=== PATIENT | female | born 1950 | race Caucasian/White ===

== ENCOUNTER 2020-09-26 17:47 | Inpatient (IN) | payer MEDICARE, SELFPAY ==
--- NOTE | ~2020-09-26 | CT_ITS ---
EXAMINATION: CT abdomen pelvis w con DATE: 10/01/2020 08:18 INDICATION: Diverticulitis TECHNIQUE: Computed tomography (CT) of the abdomen and pelvis was performed with 100 mL Omnipaque-350 intravenous contrast. Automated exposure control and iterative reconstruction technique were employe d. The dose-length product was 855.31 mGy-cm. COMPARISON: Outside institution CT studies dated 09/19/2020 and 08/23/2020 FINDINGS: Mild discoid atelectasis at the lingula and right lower lobe. Heart size is normal. No pericardial or pleural effusion. Small sliding-type hiatal hernia. Focal hepatic steatosis at the ligamentum teres. Tiny hepatic calcific location a couple tiny calcifications in the spleen consistent with old granul omatous disease. Gallbladder is not visualized and likely surgically absent. Pancreas, bilateral adre nal glands and left kidney are normal. 1.4 cm right renal cyst. There is extensive colonic diverticul osis without adjacent inflammatory change to suggest diverticulitis. No interval change in a thin rim of soft tissue density surrounding a 1.3 cm macroscopic fat attenuation lesion along the left side o f the sigmoid colon which is without surrounding inflammatory stranding, likely sequela of chronic ep iploic appendagitis. Small bowel and appendix are normal. Small uterine fibroids. Decompressed bladde r and bilateral adnexa are unremarkable. No free intraperitoneal gas or fluid. No pathologically enla rged abdominal or pelvic lymphadenopathy. IMPRESSION: 1. No acute intra-abdominal/pelvic process. 2. Extensive diverticulosis. 3. Fibroid uterus. 4. Small sliding-type hiatal hernia. Reviewed, dictated and finalized at location A.
[2020-09-26 19:05] VITALS: BP 122/62; PULSE 86; RESP 18; TEMP 36.8; O2SAT 97
--- NOTE | 2020-09-26 19:52 | PC.NURSE ---
1815 Erp busy and er staff aware of new swing bed arrival.
[2020-09-26 20:17] VITALS: BMI 34.8
--- NOTE | 2020-09-26 22:27 | ADMGEN ---
This patient, NISHANT MACARIO, was admitted to 2nd Floor Room 226-1. Patient/family oriented to hospital policies and general routines including ID bracelet, bed and alarms, visiting hours, pain management, procedures, bathroom and other care routines, personal items, smoking policy, room service/diet, and visiting hours. Information on how to activate the Rapid Response Team has been discussed. Patient/Family are encouraged to report perceived risks to care and to ask questions if they do not understand what they are told or what they should do. Patient arrived to floor via wheelchair in the care of daughter, son-in-law, and spouse. Transferred patient to bed using a walker and gait belt.
[2020-09-27] VITALS: BP 114/67; PULSE 94; RESP 20; TEMP 36; O2SAT 96
[2020-09-27 05:35] LABS: Alanine Aminotransferase 12 U/L (14-59); Albumin Level 2.3 g/dL (3.4-5.0); Alkaline Phosphatase 88 U/L (46-116); Anion Gap 10 mmol/L (8-16); Aspartate Amino Transferase 15 U/L (15-37); Bilirubin,Total 0.2 mg/dL (0.00-1.00); Blood Urea Nitrogen 8 mg/dL (7-18); Calcium 8.5 mg/dL (8.5-10.1); Carbon Dioxide 27 mmol/L (21-32); Chloride 109 mmol/L (98-108); Estimated Glomerular Filt Rate > 60; Glucose 91 mg/dL (70-99); Osmolality Calculated 300 mOsm/kg (285-295); Potassium 3.8 mmol/L (3.5-5.1); Sodium 146 mmol/L (136-145)
--- NOTE | 2020-09-27 07:31 | WPDREHABHP2 ---
HPI Date/Time 09/27/20 07:31 <RERE Okeefe - Last Filed: 09/27/20 10:01> Narrative This is a 70-year-old female that presented to outside [facility] on 09/18/2020 from her primary care office Dr. Larios after complaints of abdominal pain. She was admitted for reoccurring diverticulitis she had two episodes over the last 2 months was admitted two times for IV antibiotic therapy and DC'd on oral antibiotics with only partial improvement. She was DC'd with Cipro and Flagyl. She continued to have abdominal pain, intermittent diarrhea with worsening weakness and difficulty with ambulating. [facility] patient was placed ertapenem improvement she has agreed to discharge to her swing bed for 14 days of IV antibiotic therapy. P. Patient admitted in swing bed for rehabilitation due to decreased balance decreased mobility in severe limited function endurant and/or mobility. The etiologic diagnosis is [ diverticulitis, generalized weakness] I saw this patient [id number] on [yes] Therapy was initiated at the acute care facility and the patient transferred to us from [[facility]] on [09/26/2020] Our therapists will evaluate the patient and establish the goals. However, upon pre-admission screening, the expected goals were to be [INDEPENDENT] with self-care, [INDEPENDENT] with transfers, and [INDEPENDENT] with functional mobility so that the patient can return home. ESTIMATED LENGTH OF STAY: [10-14 days] POTENTIAL BARRIERS TO DISCHARGE: [Patient lives alone.] [Family needs training.] [Severity of condition.] [Architectural barriers.] ACTIVE CO-MORBIDITIES PRESENT ON ADMISSION: Active co-morbidities include [patient has a past medical history of arthritis, asthma, back pain, GERD, migraine, urinary incontinence and diverticulitis]. The above co-morbidities impact the patient's function and/or functional outcome by [] <RERE Okeefe - Last Filed: 09/27/20 10:01> Covid The patient had a negative COVID test on []. <RERE Okeefe - Last Filed: 09/27/20 10:01> Review of Systems Review of Systems A 14 organ system Review of Systems was performed and pertinent positives included in the HPI, otherwise remaining ROS is negative. <RERE Okeefe - Last Filed: 09/27/20 10:01> [facility] Past Medical History Medical History: Medical History (Updated 09/27/20 @ 09:05 by RERE Okeefe) Arthritis Asthma Diverticulitis FH: cholecystectomy GERD (gastroesophageal reflux disease) Lower back pain Migraine Urinary incontinence <RERE Okeefe - Last Filed: 09/27/20 10:01> Surgical History Surgical History: Surgical History (Updated 09/27/20 @ 07:43 by RERE Okeefe) H/O arthroscopic knee surgery 03/01/2019 x3 H/O breast biopsy H/O colonoscopy History of bladder surgery History of bladder suspension procedure History of lumpectomy of right breast <RERE Okeefe - Last Filed: 09/27/20 10:01> Family History Family History: Family History (Updated 09/27/20 @ 08:33 by RERE Okeefe) Mother Cerebrovascular accident Father Heart disease Diabetes mellitus Malignant neoplasm of prostate Hypertension BL 01/16/2015 <RERE Okeefe - Last Filed: 09/27/20 10:01> Social History Social History: Social History Smoking status: Never smoker Alcohol intake: never Substance use: never Gender identity (if verbalized by the patient): Female Sexual Orientation (if Verbalized by the Patient): Straight or Heterosexual Spiritual care concerns: No <RERE Okeefe - Last Filed: 09/27/20 10:01> Meds Home Medications and Allergies Home medications: Home Medications Medication Instructions Recorded Confirmed Type albuterol sulfate 2 puff INHALATION QID PRN 09/26/20 09/26/20 History ertapenem 1 g IV Q24H 09/26/20 09/26/20 History fluticasone
[2020-09-27 08:00] VITALS: BP 131/69; PULSE 95; RESP 16; TEMP 36.3; O2SAT 93
[2020-09-27] MEDS: ERTAPENEM 1 GM/NS 50 ML 1 GM/50 ML BAG IVPB (09:30)
[2020-09-27] MEDS: PANTOPRAZOLE 40 MG TABLET PO (09:30)
[2020-09-27] MEDS: ONDANSETRON HCL ODT 4 MG TABLET PO ×2 (10:12→17:29)
[2020-09-27] MEDS: FLUTICASONE PROPIONATE 0.05% NA SPR 16 GM BTL (*BKC) 2 SPRAY NASAL (10:16)
[2020-09-27] MEDS: SALMET XINAFT/FLUTIC PROPIN 100 MCG/50 MCG INH CAP 1 PUFF INHALATION ×2 (10:16→17:53)
[2020-09-27] MEDS: LIDOCAINE 5% PATCH 1 PATCH TRANSDERM (14:12)
[2020-09-27] MEDS: NAPROXEN 250 MG TABLET PO ×2 (14:12→17:54)
[2020-09-27] MEDS: CENTRAL LINE FLUSH 10 ML IV PUSH ×2 (14:15→21:47)
[2020-09-27 16:00] VITALS: BP 141/78; PULSE 105; RESP 16; TEMP 37.1; O2SAT 95
--- NOTE | 2020-09-27 21:02 | PC.NURSE ---
Patient ambulated to bathroom with walker, gait belt, and SBA. Cont of B and B. Assisted back to bed. Positioned for comfort. SR upx2. Call light and belongings within reach.
--- NOTE | 2020-09-27 22:44 | PC.NURSE ---
Patient ambulated to bathroom with gait belt, walker, and SBA. Patient assisted back to bed with x2 siderails up. Call light and belongings in reach.
[2020-09-28] VITALS: BP 123/77; PULSE 102; RESP 20; TEMP 36.8; O2SAT 98
[2020-09-28] MEDS: HYDROcodone/acetaminophen (*CRX) 10-325 MG TABLET 1 TAB PO (00:10)
[2020-09-28 05:32] LABS: Hematocrit 33.8 % (35.0-42.0); Hemoglobin 10.3 g/dL (11.7-13.8); Mean Corpuscular HGB Conc 30.5 g/dL (32.0-36.0); Mean Corpuscular Hemoglobin 27.6 pg (27.0-31.0); Mean Corpuscular Volume 90.6 fL (78.0-102.0); Mean Platelet Volume 9.8 fl (9.2-11.8); Platelet Count Result 339 K/mm3 (150-420); Red Blood Count 3.73 M/mm3 (4.20-5.40); Red Cell Distribution Width 13.2 % (11.6-14.4); White Blood Count 6.1 K/mm3 (4.8-10.8)
[2020-09-28 05:38] LABS: Anion Gap 10 mmol/L (8-16); Blood Urea Nitrogen 7 mg/dL (7-18); Calcium 8.5 mg/dL (8.5-10.1); Carbon Dioxide 26 mmol/L (21-32); Chloride 110 mmol/L (98-108); Estimated Glomerular Filt Rate > 60; Glucose 94 mg/dL (70-99); Osmolality Calculated 300 mOsm/kg (285-295); Potassium 3.9 mmol/L (3.5-5.1); Sodium 146 mmol/L (136-145)
[2020-09-28] MEDS: CENTRAL LINE FLUSH 10 ML IV PUSH ×3 (05:43→21:16)
--- NOTE | 2020-09-28 07:39 | PM.EVENT ---
Event Note Event Note Event Note: Patient slightly tachycardic heart rate up to 102 we will keep a close eye on her heart rate
[2020-09-28 08:00] VITALS: BP 134/79; PULSE 93; RESP 17; TEMP 36.3; O2SAT 96
[2020-09-28] MEDS: FLUTICASONE PROPIONATE 0.05% NA SPR 16 GM BTL (*BKC) 2 SPRAY NASAL (08:22)
[2020-09-28] MEDS: LIDOCAINE 5% PATCH 1 PATCH TRANSDERM (08:23)
[2020-09-28] MEDS: SALMET XINAFT/FLUTIC PROPIN 100 MCG/50 MCG INH CAP 1 PUFF INHALATION ×2 (08:25→18:06)
[2020-09-28] MEDS: PANTOPRAZOLE 40 MG TABLET PO (08:25)
[2020-09-28] MEDS: NAPROXEN 250 MG TABLET PO ×2 (08:26→17:00)
[2020-09-28] MEDS: DOCUSATE SODIUM 100 MG CAPSULE PO (08:26)
[2020-09-28] MEDS: ONDANSETRON HCL ODT 4 MG TABLET PO (08:49)
--- NOTE | 2020-09-28 09:03 | PC.NURSE ---
stool was very small, 3 pebble like stool
[2020-09-28] MEDS: ERTAPENEM 1 GM/NS 50 ML 1 GM/50 ML BAG IVPB (09:48)
[2020-09-28] MEDS: ACETAMINOPHEN 325 MG TABLET 650 MG PO ×2 (12:09→21:05)
--- NOTE | 2020-09-28 13:46 | PC.NURSE ---
very small amount of stool.
[2020-09-28 16:00] VITALS: BP 137/70; PULSE 100; RESP 16; TEMP 36.1; O2SAT 97
--- NOTE | 2020-09-28 16:27 | PC.NURSE ---
Patient resting in bed. Denies pain, nausea. SR up x2. Call light and belongings within reach.
--- NOTE | 2020-09-28 16:41 | PC.NURSE ---
Patient assisted to bathroom. Patient amb with walker, gait belt, and SBA. Gait steady. Patient up in chair for supper. Call light and belongings within reach.
--- NOTE | 2020-09-28 17:45 | PC.NURSE ---
Patient up to bathroom. Ambulated with walker, gait belt and SBA. Patient back to chair with call light and belongings within reach.
[2020-09-29] VITALS: BP 129/75; PULSE 90; RESP 20; TEMP 36.6; O2SAT 97
--- NOTE | 2020-09-29 00:19 | PC.NURSE ---
Pt up to the bathroom with her walker and standby assist of one. Pt voided and returned to bed with her walker and standby assist of one. pt tolerated activity well.
--- NOTE | 2020-09-29 02:01 | PC.NURSE ---
Pt asleep and no signs of discomfort noted.
--- NOTE | 2020-09-29 03:50 | PC.NURSE ---
Pt up to the bathroom with the walker, gait belt and assist of one. Pt voided and returned to bed with her walker and assist of one. Side rails up x2 and call ferrara within reach.
[2020-09-29] MEDS: CENTRAL LINE FLUSH 10 ML IV PUSH ×3 (06:04→21:07)
--- NOTE | 2020-09-29 06:12 | PC.NURSE ---
Pt up to the bathroom with the walker, gait belt, and standby assist of one. Pt voided and returned back to bed with the walker, gait belt and assist of one.
[2020-09-29 08:00] VITALS: BP 145/67; PULSE 92; RESP 16; TEMP 36.8; O2SAT 94
[2020-09-29] MEDS: FLUTICASONE PROPIONATE 0.05% NA SPR 16 GM BTL (*BKC) 2 SPRAY NASAL (08:24)
[2020-09-29] MEDS: SALMET XINAFT/FLUTIC PROPIN 100 MCG/50 MCG INH CAP 1 PUFF INHALATION ×2 (08:25→16:44)
[2020-09-29] MEDS: NAPROXEN 250 MG TABLET PO ×2 (08:32→16:44)
[2020-09-29] MEDS: ACETAMINOPHEN 325 MG TABLET 650 MG PO ×2 (08:32→21:05)
[2020-09-29] MEDS: PANTOPRAZOLE 40 MG TABLET PO (08:32)
[2020-09-29] MEDS: LIDOCAINE 5% PATCH 1 PATCH TRANSDERM (08:34)
[2020-09-29] MEDS: DOCUSATE SODIUM 100 MG CAPSULE PO (08:44)
[2020-09-29] MEDS: ERTAPENEM 1 GM/NS 50 ML 1 GM/50 ML BAG IVPB (08:48)
[2020-09-29 16:00] VITALS: BP 121/75; PULSE 93; RESP 16; TEMP 37.1; O2SAT 96
--- NOTE | 2020-09-29 18:08 | PC.NURSE ---
Patient's son brought in Xray disc and typed report from patient's stay at [facility]. Disc and copy of report taken down to radiology and given to office technician.
[2020-09-30] VITALS: BP 141/72; PULSE 95; RESP 20; TEMP 36.2; O2SAT 95
[2020-09-30] MEDS: CENTRAL LINE FLUSH 10 ML IV PUSH ×3 (05:47→20:32)
[2020-09-30 08:00] VITALS: BP 132/87; PULSE 105; RESP 18; TEMP 36.8
[2020-09-30] MEDS: NAPROXEN 250 MG TABLET PO ×2 (08:19→16:47)
[2020-09-30] MEDS: SALMET XINAFT/FLUTIC PROPIN 100 MCG/50 MCG INH CAP 1 PUFF INHALATION ×2 (08:27→16:47)
[2020-09-30] MEDS: FLUTICASONE PROPIONATE 0.05% NA SPR 16 GM BTL (*BKC) 2 SPRAY NASAL (10:35)
[2020-09-30] MEDS: PANTOPRAZOLE 40 MG TABLET PO (10:36)
[2020-09-30] MEDS: LIDOCAINE 5% PATCH 1 PATCH TRANSDERM (10:36)
[2020-09-30] MEDS: DOCUSATE SODIUM 100 MG CAPSULE PO (10:36)
[2020-09-30] MEDS: ERTAPENEM 1 GM/NS 50 ML 1 GM/50 ML BAG IVPB (10:37)
[2020-09-30 16:00] VITALS: BP 135/76; PULSE 98; RESP 18; TEMP 36.7; O2SAT 99
[2020-09-30] MEDS: ACETAMINOPHEN 325 MG TABLET 650 MG PO (20:27)
[2020-10-01 00:10] VITALS: BP 124/71; PULSE 96; RESP 20; TEMP 36.3; O2SAT 98
[2020-10-01 05:13] LABS: Hematocrit 35.5 % (35.0-42.0); Hemoglobin 10.9 g/dL (11.7-13.8); Mean Corpuscular HGB Conc 30.7 g/dL (32.0-36.0); Mean Corpuscular Volume 91.3 fL (78.0-102.0); Mean Platelet Volume 10.1 fl (9.2-11.8); Platelet Count Result 329 K/mm3 (150-420); Red Blood Count 3.89 M/mm3 (4.20-5.40); Red Cell Distribution Width 13.5 % (11.6-14.4); White Blood Count 7.1 K/mm3 (4.8-10.8)
[2020-10-01 05:24] LABS: Anion Gap 15 mmol/L (8-16); Blood Urea Nitrogen 9 mg/dL (7-18); Carbon Dioxide 22 mmol/L (21-32); Chloride 108 mmol/L (98-108); Estimated Glomerular Filt Rate > 60; Glucose 95 mg/dL (70-99); Osmolality Calculated 298 mOsm/kg (285-295); Potassium 3.7 mmol/L (3.5-5.1); Sodium 145 mmol/L (136-145)
[2020-10-01] MEDS: CENTRAL LINE FLUSH 10 ML IV PUSH ×3 (06:23→22:00)
[2020-10-01] MEDS: NAPROXEN 250 MG TABLET PO ×2 (07:33→16:50)
[2020-10-01 08:00] VITALS: BP 130/74; PULSE 96; RESP 16; TEMP 36.6; O2SAT 98
[2020-10-01] MEDS: SALMET XINAFT/FLUTIC PROPIN 100 MCG/50 MCG INH CAP 1 PUFF INHALATION ×2 (09:09→18:01)
[2020-10-01] MEDS: FLUTICASONE PROPIONATE 0.05% NA SPR 16 GM BTL (*BKC) 2 SPRAY NASAL (09:09)
[2020-10-01] MEDS: DOCUSATE SODIUM 100 MG CAPSULE PO (09:10)
[2020-10-01] MEDS: traMADol HCL (*CRX) 50 MG TABLET PO ×2 (09:10→21:30)
[2020-10-01] MEDS: SUMAtriptan SUCCINATE 25 MG TABLET PO (09:10)
[2020-10-01] MEDS: PANTOPRAZOLE 40 MG TABLET PO (09:12)
[2020-10-01] MEDS: LIDOCAINE 5% PATCH 1 PATCH TRANSDERM (09:13)
[2020-10-01] MEDS: ERTAPENEM 1 GM/NS 50 ML 1 GM/50 ML BAG IVPB (09:14)
--- NOTE | 2020-10-01 09:17 | P.PNIM_ITS ---
Progress Note: A&P Assessment and Plan (1) Weakness: Code(s): R53.1 - Weakness <TACHO Melchor - Last Filed: 10/01/20 13:00> Status: Acute <Berry LoriTACHO Pittman - Last Filed: 10/01/20 13:00> Assessment and Plan: ? Exhibit tolerance during physical activity as evidenced by a normal fluctuation of vital signs during physical activity. ? Patient will be ability to perform required activities of daily living. ? Provide appropriate nutrition for healing and strength. ? Use appropriate to prevent falls. ? Continue physical therapy/occupational therapy. 10/01/2020 Pt doing well with PT/OT, meeting goals <TACHO Melchor - Last Filed: 10/01/20 13:00> (2) Diverticulitis: Code(s): K57.92 - Diverticulitis of intestine, part unspecified, without perforation or abscess without bleeding <TACHO Melchor - Last Filed: 10/01/20 13:00> Status: Acute <TACHO Melchor - Last Filed: 10/01/20 13:00> Assessment and Plan: * CT from the outside hospital on 08/23/2020 indicate diverticulitis with a small volume of free fluid in the pelvis. Follow-up colonoscopy is recommended after resolution of symptoms * Patient failed outpatient oral ABX * ID consulted at outside hospital started IV Cipro and Flagyl * Continu ertapenem 1 g daily for 14 day tentatively last day of therapy will be October 09, 2020 * CBC and BMP every 7 days fax results to [phone] * Follow-up with Dr. Booth ID 10/02/2020 * CT of abd with contract 10/01/2020 cd to go with patient for appt * wbc at [facility] 5.5 * Repeat CBC pending 10/01/2020 Pt looking forward to follow up tomorrow, continue Ab till 10/09/20, no pain, CT shows extensive diverticulosis per report and mentions epiploic appendagitis at sigmoid. <TACHO Melchor - Last Filed: 10/01/20 13:00> (3) Urinary incontinence: Code(s): R32 - Unspecified urinary incontinence <Berry Damico, CMM INSPECTOR-C - Last Filed: 10/01/20 13:00> Status: Acute <Berry Damico, CMM INSPECTOR-C - Last Filed: 10/01/20 13:00> Assessment and Plan: * Bladder suspension procedure completed <Berry Damico, CMM INSPECTOR-C - Last Filed: 10/01/20 13:00> (4) Migraine: Code(s): G43.909 - Migraine, unspecified, not intractable, without status migrainosus <Berry Damico, CMM INSPECTOR-C - Last Filed: 10/01/20 13:00> Status: Acute <Berry Damico, CMM INSPECTOR-C - Last Filed: 10/01/20 13:00> Assessment and Plan: * continue sumatriptan <Berry Damico, CMM INSPECTOR-C - Last Filed: 10/01/20 13:00> (5) GERD (gastroesophageal reflux disease): Code(s): K21.9 - Gastro-esophageal reflux disease without esophagitis <Berry Damico, CMM INSPECTOR-C - Last Filed: 10/01/20 13:00> Status: Acute <Berry Damico, CMM INSPECTOR-C - Last Filed: 10/01/20 13:00> Assessment and Plan: * Continue Protonix <Berry Damico, CMM INSPECTOR-C - Last Filed: 10/01/20 13:00> (6) Lower back pain: Code(s): M54.5 - Low back pain <Berry Damico, CMM INSPECTOR-C - Last Filed: 10/01/20 13:00> Status: Acute <Berry Damico, CMM INSPECTOR-C - Last Filed: 10/01/20 13:00> Assessment and Plan: * Continue pain medication <Berry Damico, CMM INSPECTOR-C - Last Filed: 10/01/20 13:00> (7) Asthma: Code(s): J45.909 - Unspecified asthma, uncomplicated <Berry Damico, CMM INSPECTOR-C - Last Filed: 10/01/20 13:00> Status: Acute <Berry Damico, CMM INSPECTOR-C - Last Filed: 10/01/20 13:00> Assessment and Plan: * Continue inhalers <Berry Damico APN-Padmini - Last Filed: 10/01/20 13:00> (8)
--- NOTE | 2020-10-01 09:17 | PM.IMPN ---
Progress Note: A&P Assessment and Plan (1) Weakness: Code(s): R53.1 - Weakness <TACHO Melchor - Last Filed: 10/01/20 13:00> Status: Acute <TACHO Melchor - Last Filed: 10/01/20 13:00> Assessment and Plan: ? Exhibit tolerance during physical activity as evidenced by a normal fluctuation of vital signs during physical activity. ? Patient will be ability to perform required activities of daily living. ? Provide appropriate nutrition for healing and strength. ? Use appropriate to prevent falls. ? Continue physical therapy/occupational therapy. 10/01/2020 Pt doing well with PT/OT, meeting goals <TACHO Melchor - Last Filed: 10/01/20 13:00> (2) Diverticulitis: Code(s): K57.92 - Diverticulitis of intestine, part unspecified, without perforation or abscess without bleeding <TACHO Melchor - Last Filed: 10/01/20 13:00> Status: Acute <TACHO Melchor - Last Filed: 10/01/20 13:00> Assessment and Plan: CT from the outside hospital on 08/23/2020 indicate diverticulitis with a small volume of free fluid in the pelvis. Follow-up colonoscopy is recommended after resolution of symptoms Patient failed outpatient oral ABX ID consulted at outside hospital started IV Cipro and Flagyl Continu ertapenem 1 g daily for 14 day tentatively last day of therapy will be October 09, 2020 CBC and BMP every 7 days fax results to [phone] Follow-up with Dr. Booth ID 10/02/2020 CT of abd with contract 10/01/2020 cd to go with patient for appt wbc at [facility] 5.5 Repeat CBC pending 10/01/2020 Pt looking forward to follow up tomorrow, continue Ab till 10/09/20, no pain, CT shows extensive diverticulosis per report and mentions epiploic appendagitis at sigmoid. <TACHO Melchor - Last Filed: 10/01/20 13:00> (3) Urinary incontinence: Code(s): R32 - Unspecified urinary incontinence <TACHO Melchor - Last Filed: 10/01/20 13:00> Status: Acute <Berry Damico SALES OPERATIONS LEAD-C - Last Filed: 10/01/20 13:00> Assessment and Plan: Bladder suspension procedure completed <Berry Damico SALES OPERATIONS LEAD-C - Last Filed: 10/01/20 13:00> (4) Migraine: Code(s): G43.909 - Migraine, unspecified, not intractable, without status migrainosus <Berry Diazwood SALES OPERATIONS LEAD-C - Last Filed: 10/01/20 13:00> Status: Acute <Berry Diazwood SALES OPERATIONS LEAD-C - Last Filed: 10/01/20 13:00> Assessment and Plan: continue sumatriptan <Berry Diazwood SALES OPERATIONS LEAD-C - Last Filed: 10/01/20 13:00> (5) GERD (gastroesophageal reflux disease): Code(s): K21.9 - Gastro-esophageal reflux disease without esophagitis <Berry Diazwood SALES OPERATIONS LEAD-C - Last Filed: 10/01/20 13:00> Status: Acute <Berry Diazwood SALES OPERATIONS LEAD-C - Last Filed: 10/01/20 13:00> Assessment and Plan: Continue Protonix <Berry Diazwood SALES OPERATIONS LEAD-C - Last Filed: 10/01/20 13:00> (6) Lower back pain: Code(s): M54.5 - Low back pain <Berry SandovalValentino Damico SALES OPERATIONS LEAD-C - Last Filed: 10/01/20 13:00> Status: Acute <Berry Diazwood SALES OPERATIONS LEAD-C - Last Filed: 10/01/20 13:00> Assessment and Plan: Continue pain medication <Berry SandovalValentino Damico SALES OPERATIONS LEAD-C - Last Filed: 10/01/20 13:00> (7) Asthma: Code(s): J45.909 - Unspecified asthma, uncomplicated <Berry SandovalValentino Damico SALES OPERATIONS LEAD-C - Last Filed: 10/01/20 13:00> Status: Acute <Berry SandovalValentino Damico SALES OPERATIONS LEAD-C - Last Filed: 10/01/20 13:00> Assessment and Plan: Continue inhalers <TACHO Melchor - Last Filed: 10/01/20 13:00> (8) Arthritis: Code(s): M19.90 - Unspecified osteoarthritis, unspecified site <TACHO Melchor - Last Filed: 10/01/20 13:00> Status: Acute <TACHO Melchor - Last Filed: 10/01/20 13:00> Assessment and Plan: Continue pain medication Continue PT OT <TACHO Melchor - Last Filed: 10/01/20 13:00> Subjecti
[2020-10-01 16:00] VITALS: BP 124/86; PULSE 91; RESP 18; TEMP 36.9; O2SAT 97
--- NOTE | 2020-10-01 16:57 | PC.NURSE ---
Patient up in chair with call light and belongings within reach. Patient alert and oriented x4. PICC line to left upper line intact, no redness, drainage, edema to site. Dressing to PICC line clean, dry, intact. was in room visiting.
--- NOTE | 2020-10-01 23:35 | PC.NURSE ---
Pt up to the bathroom with her waker and standby assist of one. Pt voided and returned to bed with her walker and standby assist of one. Side rails up x 2 and call ferrara within reach.
[2020-10-02] VITALS: BP 113/61; PULSE 100; RESP 20; TEMP 36.6; O2SAT 95
--- NOTE | 2020-10-02 02:13 | PC.NURSE ---
Pt asleep and no signs of discomfort noted.
--- NOTE | 2020-10-02 04:05 | PC.NURSE ---
Pt asleep and no signs of discomfort noted.
--- NOTE | 2020-10-02 05:16 | PC.NURSE ---
Pt up to the bathroom with her walker and standby assist of one. Pt voided and returned to bed with her walker and standby assist of one. Side rails up x2 and call ferrara within reach.
[2020-10-02] MEDS: CENTRAL LINE FLUSH 10 ML IV PUSH ×2 (05:53→22:00)
--- NOTE | 2020-10-02 05:57 | PC.NURSE ---
Pt's central line flushed with 10 ml of NS as ordered.
[2020-10-02 08:00] VITALS: BP 104/79; PULSE 90; RESP 18; TEMP 36.5; O2SAT 95
[2020-10-02] MEDS: ERTAPENEM 1 GM/NS 50 ML 1 GM/50 ML BAG IVPB (08:34)
[2020-10-02] MEDS: PANTOPRAZOLE 40 MG TABLET PO (08:34)
[2020-10-02] MEDS: traMADol HCL (*CRX) 50 MG TABLET PO ×3 (08:35→23:39)
[2020-10-02] MEDS: DOCUSATE SODIUM 100 MG CAPSULE PO (08:35)
[2020-10-02] MEDS: FLUTICASONE PROPIONATE 0.05% NA SPR 16 GM BTL (*BKC) 2 SPRAY NASAL (08:35)
[2020-10-02] MEDS: NAPROXEN 250 MG TABLET PO ×2 (08:35→17:15)
[2020-10-02] MEDS: SALMET XINAFT/FLUTIC PROPIN 100 MCG/50 MCG INH CAP 1 PUFF INHALATION ×2 (08:36→18:10)
[2020-10-02] MEDS: LIDOCAINE 5% PATCH 1 PATCH TRANSDERM (08:36)
--- NOTE | 2020-10-02 12:46 | PC.NURSE ---
Left on pass for doctors appointment with spouse, copy of films and reading sent with patient as instructed
--- NOTE | 2020-10-02 17:18 | PC.NURSE ---
returned from appointment, taken to bathroom and dinner tray to patient
[2020-10-02 17:19] VITALS: BP 114/82; PULSE 104; RESP 18; TEMP 36.8; O2SAT 95
[2020-10-03] VITALS: BP 120/64; PULSE 90; RESP 20; TEMP 36.4; O2SAT 94
[2020-10-03] MEDS: CENTRAL LINE FLUSH 10 ML IV PUSH ×3 (05:17→21:09)
[2020-10-03 08:00] VITALS: BP 128/74; PULSE 92; RESP 17; TEMP 36.3; O2SAT 97
[2020-10-03] MEDS: PANTOPRAZOLE 40 MG TABLET PO (08:17)
[2020-10-03] MEDS: FLUTICASONE PROPIONATE 0.05% NA SPR 16 GM BTL (*BKC) 2 SPRAY NASAL (08:17)
[2020-10-03] MEDS: NAPROXEN 250 MG TABLET PO ×2 (08:18→17:55)
[2020-10-03] MEDS: DOCUSATE SODIUM 100 MG CAPSULE PO (08:18)
[2020-10-03] MEDS: LIDOCAINE 5% PATCH 1 PATCH TRANSDERM (08:19)
[2020-10-03] MEDS: traMADol HCL (*CRX) 50 MG TABLET PO ×2 (08:19→21:08)
[2020-10-03] MEDS: ERTAPENEM 1 GM/NS 50 ML 1 GM/50 ML BAG IVPB (08:20)
[2020-10-03] MEDS: SALMET XINAFT/FLUTIC PROPIN 100 MCG/50 MCG INH CAP 1 PUFF INHALATION ×2 (08:22→17:55)
[2020-10-03 16:00] VITALS: BP 132/76; PULSE 89; RESP 18; TEMP 36.9; O2SAT 96
[2020-10-03] MEDS: ONDANSETRON HCL ODT 4 MG TABLET PO (17:55)
[2020-10-03 23:43] VITALS: BP 110/72; PULSE 91; RESP 18; TEMP 36.1; O2SAT 96
[2020-10-04 05:13] LABS: Hematocrit 33.1 % (35.0-42.0); Hemoglobin 10.4 g/dL (11.7-13.8); Mean Corpuscular HGB Conc 31.4 g/dL (32.0-36.0); Mean Corpuscular Hemoglobin 28.3 pg (27.0-31.0); Mean Corpuscular Volume 89.9 fL (78.0-102.0); Mean Platelet Volume 10.3 fl (9.2-11.8); Platelet Count Result 289 K/mm3 (150-420); Red Blood Count 3.68 M/mm3 (4.20-5.40); Red Cell Distribution Width 13.3 % (11.6-14.4)
[2020-10-04 05:26] LABS: Anion Gap 12 mmol/L (8-16); Blood Urea Nitrogen 16 mg/dL (7-18); Calcium 8.7 mg/dL (8.5-10.1); Carbon Dioxide 25 mmol/L (21-32); Chloride 104 mmol/L (98-108); Estimated Glomerular Filt Rate > 60; Glucose 99 mg/dL (70-99); Osmolality Calculated 293 mOsm/kg (285-295); Potassium 4.1 mmol/L (3.5-5.1); Sodium 141 mmol/L (136-145)
[2020-10-04] MEDS: CENTRAL LINE FLUSH 10 ML IV PUSH ×2 (06:03→13:15)
[2020-10-04 08:00] VITALS: BP 132/71; PULSE 98; RESP 18; TEMP 36.6; O2SAT 96
[2020-10-04] MEDS: SALMET XINAFT/FLUTIC PROPIN 100 MCG/50 MCG INH CAP 1 PUFF INHALATION ×2 (08:29→17:00)
[2020-10-04] MEDS: PANTOPRAZOLE 40 MG TABLET PO (08:33)
[2020-10-04] MEDS: FLUTICASONE PROPIONATE 0.05% NA SPR 16 GM BTL (*BKC) 2 SPRAY NASAL (08:33)
[2020-10-04] MEDS: DOCUSATE SODIUM 100 MG CAPSULE PO (08:34)
[2020-10-04] MEDS: NAPROXEN 250 MG TABLET PO ×2 (08:34→16:59)
[2020-10-04] MEDS: LIDOCAINE 5% PATCH 1 PATCH TRANSDERM (08:35)
[2020-10-04] MEDS: ERTAPENEM 1 GM/NS 50 ML 1 GM/50 ML BAG IVPB (08:40)
[2020-10-04 16:00] VITALS: BP 116/69; PULSE 86; RESP 16; TEMP 37.1; O2SAT 96
[2020-10-04] MEDS: ONDANSETRON INJ 4 MG/2 ML VIAL IV PUSH (18:09)
[2020-10-04] MEDS: traMADol HCL (*CRX) 50 MG TABLET PO (21:03)
[2020-10-05 05:34] VITALS: BP 106/63; PULSE 84; RESP 20; TEMP 36.4; O2SAT 95
[2020-10-05 07:52] VITALS: BP 132/62; PULSE 74; RESP 18; TEMP 36.6; O2SAT 98
[2020-10-05] MEDS: SALMET XINAFT/FLUTIC PROPIN 100 MCG/50 MCG INH CAP 1 PUFF INHALATION ×2 (08:29→17:31)
[2020-10-05] MEDS: CENTRAL LINE FLUSH 10 ML IV PUSH ×2 (08:29→21:24)
[2020-10-05] MEDS: PANTOPRAZOLE 40 MG TABLET PO (08:30)
[2020-10-05] MEDS: NAPROXEN 250 MG TABLET PO ×2 (08:30→17:32)
[2020-10-05] MEDS: ERTAPENEM 1 GM/NS 50 ML 1 GM/50 ML BAG IVPB (08:30)
[2020-10-05] MEDS: FLUTICASONE PROPIONATE 0.05% NA SPR 16 GM BTL (*BKC) 2 SPRAY NASAL (08:30)
[2020-10-05] MEDS: DOCUSATE SODIUM 100 MG CAPSULE PO (08:30)
[2020-10-05] MEDS: LIDOCAINE 5% PATCH 1 PATCH TRANSDERM (08:32)
[2020-10-05] MEDS: ACETAMINOPHEN 325 MG TABLET 650 MG PO (08:37)
[2020-10-05 16:00] VITALS: BP 131/72; PULSE 89; RESP 18; TEMP 36.4; O2SAT 96
[2020-10-05] MEDS: traMADol HCL (*CRX) 50 MG TABLET PO (21:23)
[2020-10-06] VITALS: BP 120/72; PULSE 95; RESP 18; TEMP 36.4; O2SAT 99
[2020-10-06 08:00] VITALS: BP 132/60; PULSE 90; RESP 18; TEMP 36.5; O2SAT 95
[2020-10-06] MEDS: ERTAPENEM 1 GM/NS 50 ML 1 GM/50 ML BAG IVPB (08:37)
[2020-10-06] MEDS: DOCUSATE SODIUM 100 MG CAPSULE PO (08:39)
[2020-10-06] MEDS: PANTOPRAZOLE 40 MG TABLET PO (08:39)
[2020-10-06] MEDS: traMADol HCL (*CRX) 50 MG TABLET PO ×2 (08:40→20:34)
[2020-10-06] MEDS: LIDOCAINE 5% PATCH 1 PATCH TRANSDERM (08:40)
[2020-10-06] MEDS: FLUTICASONE PROPIONATE 0.05% NA SPR 16 GM BTL (*BKC) 2 SPRAY NASAL (08:40)
[2020-10-06] MEDS: SALMET XINAFT/FLUTIC PROPIN 100 MCG/50 MCG INH CAP 1 PUFF INHALATION ×2 (08:40→17:41)
[2020-10-06] MEDS: NAPROXEN 250 MG TABLET PO ×2 (08:40→17:41)
[2020-10-06] MEDS: CENTRAL LINE FLUSH 10 ML IV PUSH ×2 (08:46→21:00)
[2020-10-06 16:00] VITALS: BP 130/60; PULSE 88; RESP 18; TEMP 36.6; O2SAT 96
[2020-10-07] VITALS: BP 139/73; PULSE 104; RESP 20; TEMP 36.4; O2SAT 97
--- NOTE | 2020-10-07 00:20 | PC.NURSE ---
Pt up to the bathroom with her walker, gait belt and standby assist of one. Pt voided and returned to bed with the walker, gait belt and standby assist of one.
--- NOTE | 2020-10-07 04:11 | PC.NURSE ---
Pt up to the bathroom with the walker , gait belt and standby assist of one. Pt returned back to bed with the walker, gait belt and standby assist of one. Pt tolerated activity well.
--- NOTE | 2020-10-07 04:14 | PC.NURSE ---
Pt asleep and no signs of discomfort noted.
[2020-10-07] MEDS: CENTRAL LINE FLUSH 10 ML IV PUSH ×2 (06:41→21:33)
--- NOTE | 2020-10-07 06:55 | PC.NURSE ---
Pt up to the bathroom with her walker, gait belt and standby assist of one. Pt voided and returned to the chair with the walker, gait belt and standby assist of one.
[2020-10-07 08:00] VITALS: BP 147/80; PULSE 94; RESP 18; TEMP 36.1; O2SAT 96
[2020-10-07] MEDS: FLUTICASONE PROPIONATE 0.05% NA SPR 16 GM BTL (*BKC) 2 SPRAY NASAL (08:58)
[2020-10-07] MEDS: LIDOCAINE 5% PATCH 1 PATCH TRANSDERM (08:58)
[2020-10-07] MEDS: traMADol HCL (*CRX) 50 MG TABLET PO ×2 (08:59→17:16)
[2020-10-07] MEDS: NAPROXEN 250 MG TABLET PO ×2 (08:59→17:16)
[2020-10-07] MEDS: DOCUSATE SODIUM 100 MG CAPSULE PO (09:00)
[2020-10-07] MEDS: PANTOPRAZOLE 40 MG TABLET PO (09:00)
[2020-10-07] MEDS: ERTAPENEM 1 GM/NS 50 ML 1 GM/50 ML BAG IVPB (09:02)
--- NOTE | 2020-10-07 10:16 | PC.NURSE ---
In chair with legs elevated, denies needs at this time, up to void frequently, uses call light appropriately
[2020-10-07] MEDS: ONDANSETRON HCL ODT 4 MG TABLET PO (13:18)
[2020-10-07 16:00] VITALS: BP 147/80; PULSE 94; RESP 18; TEMP 36.1; O2SAT 95
[2020-10-07] MEDS: SALMET XINAFT/FLUTIC PROPIN 100 MCG/50 MCG INH CAP 1 PUFF INHALATION (17:23)
[2020-10-07 19:50] VITALS: BP 109/62; PULSE 89; RESP 20; TEMP 37; O2SAT 95
--- NOTE | 2020-10-07 22:00 | PC.NURSE ---
resting per bed, watching tv. has no complaints. call ferrara in reach.
--- NOTE | 2020-10-07 23:35 | PC.NURSE ---
Pt up to the bathroom with the walker, gait belt and standby assist of one. Pt voided and returned to bed with her walker, gait belt and standby assist of one. Side rails up x2 and call ferrara within reach.
[2020-10-08] VITALS: BP 115/63; PULSE 86; RESP 20; TEMP 36.9; O2SAT 94
--- NOTE | 2020-10-08 02:10 | PC.NURSE ---
Pt asleep and no signs of discomfort noted.
--- NOTE | 2020-10-08 04:10 | PC.NURSE ---
Pt asleep and no signs of discomfort noted.
[2020-10-08] MEDS: CENTRAL LINE FLUSH 10 ML IV PUSH ×3 (06:29→21:45)
[2020-10-08 08:00] VITALS: BP 112/78; PULSE 78; RESP 20; TEMP 36.7; O2SAT 95
[2020-10-08] MEDS: LIDOCAINE 5% PATCH 1 PATCH TRANSDERM (09:19)
[2020-10-08] MEDS: NAPROXEN 250 MG TABLET PO ×2 (09:20→17:00)
[2020-10-08] MEDS: SALMET XINAFT/FLUTIC PROPIN 100 MCG/50 MCG INH CAP 1 PUFF INHALATION ×2 (09:20→18:20)
[2020-10-08] MEDS: DOCUSATE SODIUM 100 MG CAPSULE PO (09:20)
[2020-10-08] MEDS: PANTOPRAZOLE 40 MG TABLET PO (09:21)
[2020-10-08] MEDS: FLUTICASONE PROPIONATE 0.05% NA SPR 16 GM BTL (*BKC) 2 SPRAY NASAL (09:21)
[2020-10-08] MEDS: traMADol HCL (*CRX) 50 MG TABLET PO ×2 (09:21→21:29)
[2020-10-08] MEDS: ERTAPENEM 1 GM/NS 50 ML 1 GM/50 ML BAG IVPB (09:22)
[2020-10-08 16:00] VITALS: BP 144/71; PULSE 87; RESP 18; TEMP 36.9; O2SAT 96
[2020-10-09] VITALS: BP 123/76; PULSE 92; RESP 18; TEMP 36.3; O2SAT 97
[2020-10-09] MEDS: CENTRAL LINE FLUSH 10 ML IV PUSH (06:58)
[2020-10-09 07:20] VITALS: BP 124/69; PULSE 94; RESP 18; TEMP 35.9; O2SAT 96
[2020-10-09] MEDS: NAPROXEN 250 MG TABLET PO (07:54)
[2020-10-09] MEDS: SALMET XINAFT/FLUTIC PROPIN 100 MCG/50 MCG INH CAP 1 PUFF INHALATION (07:54)
[2020-10-09] MEDS: FLUTICASONE PROPIONATE 0.05% NA SPR 16 GM BTL (*BKC) 2 SPRAY NASAL (09:00)
[2020-10-09] MEDS: PANTOPRAZOLE 40 MG TABLET PO (09:01)
[2020-10-09] MEDS: traMADol HCL (*CRX) 50 MG TABLET PO (09:02)
[2020-10-09] MEDS: DOCUSATE SODIUM 100 MG CAPSULE PO (09:03)
[2020-10-09] MEDS: LIDOCAINE 5% PATCH 1 PATCH TRANSDERM (09:03)
[2020-10-09] MEDS: ERTAPENEM 1 GM/NS 50 ML 1 GM/50 ML BAG IVPB (09:12)
--- NOTE | 2020-10-09 09:54 | PC.NURSE ---
PICC line to Lt upper arm dc'd per order, pt. resting in chair, dressed and ready to go home. No c/o verbalized.
--- NOTE | 2020-10-09 10:55 | PM.DS ---
DS: Admitting Diagnosis Admitting Diagnosis Generalized weakness DS: Discharge Diagnosis Discharge Diagnosis (1) Weakness: Code(s): R53.1 - Weakness Status: Acute Assessment and Plan: ? Exhibit tolerance during physical activity as evidenced by a normal fluctuation of vital signs during physical activity. ? Patient will be ability to perform required activities of daily living. ? Provide appropriate nutrition for healing and strength. ? Use appropriate to prevent falls. ? Continue physical therapy/occupational therapy. Discharge Patient has completed her physical therapy/Occupational Therapy safe to discharge home (2) Diverticulitis: Code(s): K57.92 - Diverticulitis of intestine, part unspecified, without perforation or abscess without bleeding Status: Acute Assessment and Plan: CT from the outside hospital on 08/23/2020 indicate diverticulitis with a small volume of free fluid in the pelvis. Follow-up colonoscopy is recommended after resolution of symptoms Patient failed outpatient oral ABX ID consulted at outside hospital started IV Cipro and Flagyl Continu ertapenem 1 g daily for 14 day tentatively last day of therapy will be October 09, 2020 CBC and BMP every 7 days fax results to [phone] Follow-up with Dr. Booth ID 10/02/2020 CT of abd with contract 10/01/2020 cd to go with patient for appt wbc at [facility] 5.5 Repeat CBC pending Discharge Follow-up with GI at [facility] (3) Urinary incontinence: Code(s): R32 - Unspecified urinary incontinence Status: Acute Assessment and Plan: Bladder suspension procedure completed (4) Migraine: Code(s): G43.909 - Migraine, unspecified, not intractable, without status migrainosus Status: Acute Assessment and Plan: continue sumatriptan (5) GERD (gastroesophageal reflux disease): Code(s): K21.9 - Gastro-esophageal reflux disease without esophagitis Status: Acute Assessment and Plan: Continue Protonix (6) Lower back pain: Code(s): M54.5 - Low back pain Status: Acute Assessment and Plan: Continue pain medication (7) Asthma: Code(s): J45.909 - Unspecified asthma, uncomplicated Status: Acute Assessment and Plan: Continue inhalers (8) Arthritis: Code(s): M19.90 - Unspecified osteoarthritis, unspecified site Status: Acute Assessment and Plan: Continue pain medication DS: Summary Hospital Course Reason for hospitalization: Rehab generalized weakness Hospital Course: This is a 70-year-old female that presented to outside [facility] on 09/18/2020 from her primary care office Dr. Larios after complaints of abdominal pain. She was admitted for reoccurring diverticulitis she had two episodes over the last 2 months was admitted two times for IV antibiotic therapy and DC'd on oral antibiotics with only partial improvement. She was DC'd with Cipro and Flagyl. She continued to have abdominal pain, intermittent diarrhea with worsening weakness and difficulty with ambulating. [facility] patient was placed ertapenem improvement she agreed to discharge to our swing bed for 14 days of IV antibiotic therapy. Patient has completed her IV therapy and will discharge home. Time Spent with Patient Time attestation: Total time spent providing and/or coordinating discharge services:60 Exam Narrative: GENERAL: This is a well-nourished, well-developed patient, in no apparent distress. HEAD: normocephalic, atraumatic. EYES: PERRL. Sclera clear/white. Vision is grossly intact. EARS: External ears normal, auditory canals clear and without drainage, TMs normal without perforation. Hearing grossly intact. NOSE: External nose normal with no obvious nasal discharge, nares without redness, no rhinorrhea. THROAT: Mucous membranes moist, posterior pharynx clear. NECK: Neck supple, non-tender without lymphadenopathy, masses or thyr
--- NOTE | 2020-10-09 11:46 | PC.NURSE ---
D/C instructions given in detail and f/u care c her PMD in 1-2 weeks discussed. Pt verbalized understanding of all instructions. Pt staying for lunch and states her spouse will be here to pick her up around 1 pm. Pt using walker unassisted to BR and cherie well s any difficulty.
== END 2020-10-09 13:46 | disposition home or self-care (01) | DRG 392 ==
PROVIDERS: Nurse Practitioner; Nurse Practitioner Family; Admitting Provider Emergency Medicine; PCP Internal Medicine Infectious Disease; Visit Provider Emergency Medicine
DX: K57.32 Diverticulitis of large intestine without perforation or abscess without bleeding (principal); J45.909 Unspecified asthma, uncomplicated; M19.90 Unspecified osteoarthritis, unspecified site; K21.9 Gastro-esophageal reflux disease without esophagitis; M54.5 Low back pain; G43.909 Migraine, unspecified, not intractable, without status migrainosus; R32 Unspecified urinary incontinence; R53.1 Weakness
CPT/HCPCS: 36415; 74177; 80048; 80053; 85027; 97110; 97161; 97165; 97530; 97535; A9270; J1335; J2405; Q9967